=== PATIENT | female | born 1970 | race Caucasian/White ===

== ENCOUNTER 2017-09-27 09:34 | Emergency (ER) | payer OTHER ==
[~2017-09-27] VITALS: Ht 167.6 cm; Wt 98.9 kg
[2017-09-27] MEDS ORDERED: NAPROSYN500 MG PO (11:06)
[2017-09-27 11:25] VITALS: BP 132/85
== END 2017-09-27 11:25 | disposition home or self-care (01) ==
LOC: M.ERS 09:34
DX: M94.0 Chondrocostal junction syndrome [Tietze] (principal); F17.200 Nicotine dependence, unspecified, uncomplicated; Z90.710 Acquired absence of both cervix and uterus; Z85.43 Personal history of malignant neoplasm of ovary; Z85.3 Personal history of malignant neoplasm of breast

== ENCOUNTER 2019-09-04 23:34 | Observation (INO) | payer OTHER ==
[~2019-09-04] VITALS: Ht 170.2 cm; Wt 93.0 kg
--- NOTE | ~2019-09-04 | CON ---
[address] [address] CONSULTATION Name: CHERELLE CAMPBELL Room: [address] IN .R.#: [id number] Admission: 09/05/19 Attend Phys: Ana Sawant Discharge: Date of : 70 Report #: [id number] THIS REPORT FOR: //name// cc: ERICA Carias family physician/PCP ERICA - Aretha family physician/PCP ~ THIS REPORT FOR: //name// CC: [facility] physician/PCP Iván Huitron DATE OF SERVICE: 09/05/2019 REASON FOR CONSULT: Right upper quadrant abdominal pain. HISTORY OF PRESENT ILLNESS: This is a 49-year-old female who came in to hospital with severe right upper quadrant abdominal pain and symptoms of nausea. She denies any lower GI symptoms and reports that her abdominal pain and nausea have resolved since admission. She had a CT of abdomen and pelvis, which showed evidence of cholelithiasis with some pericholecystic fluid and thickened gallbladder wall, which suggest cholecystitis. She also had abdominal ultrasound, which was consistent with CT finding. There was no CBD dilation or choledocholithiasis noted in the studies. The patient's bilirubin and LFTs also did not show any biliary obstruction pattern. PAST MEDICAL HISTORY: Significant for history of diabetes mellitus, ovarian cancer, history of total hysterectomy, dyslipidemia. ALLERGIES: No known drug allergy. MEDICATIONS: Please refer to MAR. SOCIAL HISTORY: The patient lives at home, smokes 10 cigarettes per day and may occasionally have alcoholic beverage. FAMILY HISTORY: Negative for GI malignancy. PHYSICAL EXAMINATION: VITAL SIGNS: Reveals blood pressure of 110/56, respiration is 16, pulse 74, temperature 97.9. LUNGS: Clear. CARDIOVASCULAR: Regular. ABDOMEN: Soft, nontender, nondistended. Bowel sounds are positive. LABORATORY DATA: Reveal sodium of 141, potassium 3.7, BUN is 9, creatinine 0.7, glucose 119, AST is 12, ALT 26, alkaline phosphatase is 88 with total bili of 0.5. WBC is 12.2 with hemoglobin of 13.6 and platelet [place] 266. [place] [address] CONSULTATION Name: CHERELLE CAMPBELL Room: [address] IN [facility]#: [id number] Admission: 09/05/19 Attend Phys: Ana Sawant Discharge: Date of : 70 Report #: [id number] IMAGING: As discussed above. ASSESSMENT AND PLAN: The patient with right upper quadrant pain, which is intermittent. She also appears to have mild cholecystitis with evidence of mild pericholecystic fluid and gallbladder wall thickening. There is no evidence of choledocholithiasis, therefore, there is no need for ERCP. The patient at some point will require a laparoscopic cholecystectomy. Surgery is on board. Thank you for allowing us to evaluate the patient during this hospitalization. By: [id number] Sebastian Gilbert MD /sheryl
[~2019-09-04 23:34] MED LIST: NAPROSYN500 MG PO
[2019-09-04 23:41] VITALS: BP 136/87
[2019-09-04] MEDS ORDERED: METFORMIN HCL500 M3 PO (23:47)
[2019-09-04] MEDS ORDERED: LIPITOR10 MG PO (23:48)
[2019-09-04] MEDS ORDERED: TRULICITY0.75 MG/0. SUBQ (23:48)
[2019-09-04 23:55] LABS: URINE BILIRUBIN NEGATIVE (Negative); URINE BLOOD NEGATIVE (Negative); URINE CLARITY CLEAR; URINE COLOR YELLOW; URINE GLUCOSE-RANDOM NEGATIVE (Negative); URINE KETONES NEGATIVE (Negative); URINE LEUKOCYTES-REFLEX NEGATIVE (Negative); URINE NITRITE-REFLEX NEGATIVE (Negative); URINE PROTEIN NEGATIVE (Negative); URINE SPECIFIC GRAVITY 1.025 (1.005-1.030)
[2019-09-05] VITALS (7 sets, daily range): BP systolic 105–119; BP diastolic 56–70
[2019-09-05 00:13] LABS: ABSOLUTE BASOPHILS 0.1 thou/uL (0.0-0.2); ABSOLUTE EOSINOPHILS 0.4 thou/uL (0.0-0.7); ABSOLUTE LYMPHOCYTES 5.1 thou/uL (0.8-5.3); ABSOLUTE MONOCYTES 0.7 thou/uL (0.0-1.2); BASOPHILS 1.1 %; HEMATOCRIT 39.9 % (37.0-47.0); HEMOGLOBIN 13.6 gm/dL (12.0-15.0); LYMPHOCYTES 41.4 %; MCH 30.4 pg (26.0-34.0); MCHC 34.2 g/dL (28.0-37.0); MONOCYTES 5.6 %; MPV 9.2 fl. (7.2-11.1); NUCLEATED RBCS 0 /100WBC; PLATELET COUNT* 266 thou/uL (150-400); POLYS 48.9 %; RBC 4.48 mil/uL (4.20-5.00); RDW-CV 13.4 % (10.5-14.5); WBC 12.2 thou/uL (4.0-11.0)
[2019-09-05 00:22] LABS: CALCIUM 7.7 mg/dL (8.5-10.1); CREATININE 0.9 mg/dL (0.6-1.3); POTASSIUM 3.8 mmol/L (3.5-5.1)
[2019-09-05 00:27] LABS: ALBUMIN 3.4 g/dL (3.4-5.0); TOTAL BILIRUBIN 0.3 mg/dL (<0.1-1.0); TOTAL PROTEIN 6.5 g/dL (6.4-8.2)
[2019-09-05 01:23] LABS: AMP/METHAMP Negative (Negative); BARBITURATES Negative (Negative); BENZODIAZEPINES Negative (Negative); COCAINE Negative (Negative); METHADONE Negative (Negative); OPIATES Negative (Negative); PCP Negative (Negative); THC Negative (Negative)
--- NOTE | 2019-09-05 04:40 | NUR ---
ASSUMED CARE OF PT AT 4, PT A&OX4, ON ROOM AIR, VSS, IV FLUIDS INFUSING ORDERED, CONSULT FOR GI INITIATED, PT UP AD BELINDA. PT NPO. PAIN MEDS GIVEN IN ER, NO COMPLAINTS OF PAIN OF 439, WILL CONTINUE TO MONITOR.
[2019-09-05 09:14] LABS: APTT 27.4 Seconds (25.0-31.3); PROTIME 9.8 Seconds (9.20-11.50)
[2019-09-05 09:17] LABS: ALBUMIN 3.1 g/dL (3.4-5.0); CALCIUM 7.5 mg/dL (8.5-10.1); CREATININE 0.7 mg/dL (0.6-1.3); MAGNESIUM 1.7 mg/dL (1.8-2.4); POTASSIUM 3.7 mmol/L (3.5-5.1); TOTAL BILIRUBIN 0.5 mg/dL (<0.1-1.0); TOTAL PROTEIN 6.1 g/dL (6.4-8.2)
--- NOTE | 2019-09-05 11:04 | EKG ---
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
--- NOTE | 2019-09-05 13:52 | NUR ---
REMAINS A&OX4. RESPIRATIONS EVEN AND UNLABORED ON ROOM AIR. DENIES PAIN. IVFS INFUSING WITHOUT COMPLICATIONS. VSS. NO S/SX OF HYPO/HYPERGLYCEMIA. TOLERATED REGULAR DIET AT LUNCH. UP AD BELINDA TOLERATED WITH STEADY GAIT NOTED. CALL FRANKS AND PERSONAL ITEMS REMAIN WITHIN REACH. NSG WILL CONTINUE TO ASSESS.
--- NOTE | 2019-09-05 15:41 | NUR ---
Pt A&O. Resides at home with her kids. Active and independent, works outside of the home. No DME. No hx of HH or SNF. Goal is home at ri. GI following.
[2019-09-05] MEDS ORDERED: ZOFRAN ODT4 MG PO (17:31)
[2019-09-05] MEDS ORDERED: AUGMENTIN 875-1 EACH PO (17:31)
--- NOTE | 2019-09-05 19:54 | NUR ---
191 Discharged home. Discharge instructions and prescriptions given and explained.
[2019-09-06 02:06] LABS: GLYCOHEMOGLOBIN (HGB A1C) 6.8 % (4.8-5.6)
== END 2019-09-05 19:15 | disposition home or self-care (01) ==
LOC: M.ERS 23:34 → M.TBA-ER 09-05 02:14 → M.2W 09-05 02:29 → M.TBA-ER 09-05 02:29 → M.2W 09-05 02:54 → M.TBA-ER 09-05 02:54 → M.2W 09-05 03:50
PROVIDERS: Emergency Medicine; Internal Medicine; ADMIT Internal Medicine
DX: K80.42 Calculus of bile duct with acute cholecystitis without obstruction (principal); R65.10 Systemic inflammatory response syndrome (SIRS) of non-infectious origin without acute organ dysfunction; K80.00 Calculus of gallbladder with acute cholecystitis without obstruction; E11.65 Type 2 diabetes mellitus with hyperglycemia; Z85.41 Personal history of malignant neoplasm of cervix uteri

== ENCOUNTER → 2019-10-06 | Outpatient (CLI) | payer OTHER ==
[~2019-10-06] MED LIST changes: +AUGMENTIN 875-1 EACH PO; +LIPITOR10 MG PO; +METFORMIN HCL500 M3 PO; +TRULICITY0.75 MG/0. SUBQ; +ZOFRAN ODT4 MG PO
== END ==
LOC: M.LAB 08:32
PROVIDERS: ATTEND Surgery
DX: Z01.818 Encounter for other preprocedural examination (principal); Z11.59 Encounter for screening for other viral diseases; K80.10 Calculus of gallbladder with chronic cholecystitis without obstruction